=== PATIENT | female | born 1960 | race Two or more races ===

== ENCOUNTER 2017-10-19 13:52 | Outpatient (CLI) | payer OTHER | END 2017-10-19 14:42 | disposition home or self-care (01) | LOC: LAB 13:52 | DX: Z00.00 Encounter for general adult medical examination without abnormal findings (principal) ==

== ENCOUNTER → 2017-10-19 | Outpatient (CLI) | payer OTHER ==
[~2017-10-19] VITALS: Ht 152.4 cm; Wt 82.6 kg
[~2017-10-19] MED LIST: CATAFLAM50 MG PO; CITALOPRAM HBR10 MG; CLONAZEPAM0.5 MG/TAB; FLEXERIL10 MG PO; LAMICTAL5 MG; PREMARIN0.45 MG; PRILOSEC20 MG PO
== END | disposition home or self-care (01) ==
LOC: PPHC 11:30
DX: R42 Dizziness and giddiness (principal); R51 Headache; M54.89 Other dorsalgia

== ENCOUNTER → 2017-10-26 | Outpatient (CLI) | payer OTHER ==
[~2017-10-26] VITALS: Ht 152.4 cm; Wt 83.9 kg
== END | disposition home or self-care (01) ==
LOC: PPHC 09:58
DX: Z01.89 Encounter for other specified special examinations (principal)

== ENCOUNTER 2017-11-30 12:20 | Outpatient (CLI) | payer OTHER | END 2017-11-30 12:25 | disposition home or self-care (01) | LOC: MAMO-SONO 12:20 | DX: N60.11 Diffuse cystic mastopathy of right breast (principal); N60.12 Diffuse cystic mastopathy of left breast; Z12.31 Encounter for screening mammogram for malignant neoplasm of breast ==

== ENCOUNTER 2017-11-30 12:32 | Outpatient (CLI) | payer OTHER | END 2017-11-30 18:00 | disposition home or self-care (01) | LOC: MRI 12:32 | DX: M54.2 Cervicalgia (principal); R20.2 Paresthesia of skin | CPT/HCPCS: 72141 ==

== ENCOUNTER → 2017-11-30 | Outpatient (CLI) | payer OTHER | END | disposition home or self-care (01) | LOC: PPHC 10:51 | DX: M54.2 Cervicalgia (principal) ==

== ENCOUNTER → 2017-12-23 09:53 | Outpatient (CLI) | payer OTHER | END | disposition home or self-care (01) | LOC: LAB 09:53 | DX: N95.1 Menopausal and female climacteric states (principal) ==

== ENCOUNTER 2018-02-07 08:48 | Outpatient (CLI) | payer OTHER ==
[~2018-02-07] VITALS: Ht 152.4 cm; Wt 83.5 kg
== END 2018-02-07 09:10 | disposition home or self-care (01) ==
LOC: OFIC 805 08:48
DX: K21.9 Gastro-esophageal reflux disease without esophagitis (principal); R49.0 Dysphonia

== ENCOUNTER → 2018-04-08 | Outpatient (CLI) | payer OTHER | END | disposition home or self-care (01) | LOC: LAB 07:55 | DX: R10.13 Epigastric pain (principal) ==

== ENCOUNTER 2018-04-11 07:37 | Outpatient (CLI) | payer OTHER | END 2018-04-11 07:47 | disposition home or self-care (01) | LOC: TOM 07:37 | DX: R10.13 Epigastric pain (principal) ==

== ENCOUNTER 2018-09-15 15:41 | Outpatient (CLI) | payer OTHER ==
[~2018-09-15] VITALS: Ht 152.4 cm; Wt 73.0 kg
== END 2018-09-15 16:00 | disposition home or self-care (01) ==
LOC: OFIC 805 15:41
DX: K21.0 Gastro-esophageal reflux disease with esophagitis (principal); R49.0 Dysphonia; M54.2 Cervicalgia

== ENCOUNTER 2023-04-07 05:37 | Day surgery (SDC) | payer OTHER ==
[~2023-04-07] VITALS: Ht 165.1 cm; Wt 68.0 kg
[~2023-04-07 05:37] MED LIST changes: +STRESS B WITH1 EACH PO
[2023-04-07] MEDS ORDERED: PERCOCET 5-3251 EACH PO (08:50)
== END 2023-04-07 10:50 | disposition home or self-care (01) ==
LOC: CIR.AMB 05:37
PROVIDERS: ATTEND Surgery
DX: C73 Malignant neoplasm of thyroid gland (principal); E06.3 Autoimmune thyroiditis; E04.1 Nontoxic single thyroid nodule; Z20.822 Contact with and (suspected) exposure to COVID-19

== ENCOUNTER 2024-11-18 08:02 | Outpatient (CLI) | payer OTHER ==
[~2024-11-18 08:02] MED LIST changes: +PERCOCET 5-3251 EACH PO
[2024-11-18 10:34] LABS: HEMATOCRIT 41.1 % (36.0-45.00); MEAN CELL VOLUME 88.6 fL (80.00-100.00); MEAN CORPUSCULAR HEMOGLOBIN 30.1 pg (27.00-32.0); PLATELET COUNT 364 K/uL (150-450); RED BLOOD COUNT 4.64 M/uL (4.00-6.00); RED CELL DISTRIBUTION WIDTH 13.8 % (11.5-14.5)
[2024-11-18 10:37] LABS: URINE APPEARANCE Cloudy; URINE BILIRRUBIN Negative (NEGATIVE); URINE BLOOD Small; URINE COLOR Yellow; URINE GLUCOSE Negative (NEGATIVE); URINE KETONE Negative (NEGATIVE); URINE LEUKOCYTE Negative; URINE NITRATE Negative; URINE PROTEIN Negative (NEGATIVE); URINE UROBILINOGEN 0.2 E.U./dl
[2024-11-18 10:42] LABS: URINE BACTERIA 34.2 uL (0.0-1933); URINE EPITHELIAL CELLS 7.2 uL (0.0-38.8); URINE RBC 24.8 uL (0.0-20.8); URINE WBC 6.3 uL (0.0-23.2)
[2024-11-18 10:47] LABS: URINE CAST 0.73 uL (0.0-1.40)
[2024-11-18 11:41] LABS: ALBUMIN 3.8 gm/dL (3.4-5.0); BILIRUBIN TOTAL 1.08 mg/dL (0.3-1.2); CHOL HDL RATIO 3.5 (0-5.0); CREATININE SERUM 0.68 mg/dL (0.55-1.02); GFR 87.39; GLOBULINA 3.6 G/DL (2.4-3.5); POTASSIUM 4.28 mEq/L (3.5-5.1); T4 FREE 0.94 NG/ML (0.76-1.46); TOTAL PROTEIN 7.4 gm/dL (6.4-8.2)
[2024-11-18 11:42] LABS: TSH 5.18 uIU/mL (0.358-3.74)
== END 2024-11-18 08:03 | disposition home or self-care (01) ==
LOC: LAB 08:02
DX: E03.9 Hypothyroidism, unspecified (principal); E11.9 Type 2 diabetes mellitus without complications; E55.9 Vitamin D deficiency, unspecified; E78.00 Pure hypercholesterolemia, unspecified

== ENCOUNTER 2025-02-08 13:37 | Outpatient (CLI) | payer OTHER | END 2025-02-08 13:40 | disposition home or self-care (01) | LOC: MAMO-SONO 13:37 | PROVIDERS: ATTEND Internal Medicine Endocrinology, Diabetes & Metabolism | DX: I88.9 Nonspecific lymphadenitis, unspecified (principal); C73 Malignant neoplasm of thyroid gland; E04.1 Nontoxic single thyroid nodule; N64.1 Fat necrosis of breast; Z12.31 Encounter for screening mammogram for malignant neoplasm of breast ==

== ENCOUNTER 2025-02-22 11:45 | Outpatient (CLI) | payer OTHER | END 2025-02-22 11:46 | disposition home or self-care (01) | LOC: NUCLEAR 11:45 | PROVIDERS: ATTEND Internal Medicine Endocrinology, Diabetes & Metabolism | DX: M81.0 Age-related osteoporosis without current pathological fracture (principal) ==

== ENCOUNTER → 2025-03-12 07:43 | Outpatient (CLI) | payer OTHER ==
[2025-03-12 08:45] LABS: EOS # 0.13 (0.04-0.54); EOS % 3.1 % (0.7-7.0); HEMATOCRIT 39.7 % (34.1-44.9); HEMOGLOBIN 13.1 g/dL (11.2-15.7); LYMPH # 1.37 (1.18-3.74); LYMPH % 32.6 % (19.3-53.1); MONO # 0.29 (0.24-0.82); MONO % 6.9 % (4.7-12.5); NEUT # 2.37 (1.56-6.13); NEUT % 56.4 % (34.0-71.1); PLATELET COUNT 335 K/uL (163-369); RED BLOOD COUNT 4.51 M/uL (3.93-5.22); RED CELL DISTRIBUTION WIDTH 13.3 % (11.6-14.4)
[2025-03-12 08:51] LABS: PH,URINE 5.5 (5.0-8.0); URINE APPEARANCE Clear; URINE BILIRRUBIN Negative (NEGATIVE); URINE BLOOD Moderate; URINE COLOR Yellow; URINE GLUCOSE Negative (NEGATIVE); URINE KETONE Trace (NEGATIVE); URINE LEUKOCYTE Trace; URINE NITRATE Negative; URINE PROTEIN Negative (NEGATIVE)
[2025-03-12 08:56] LABS: URINE BACTERIA 56.2 uL (0.0-1933); URINE EPITHELIAL CELLS 5.5 uL (0.0-38.8); URINE RBC 29.7 uL (0.0-20.8); URINE WBC 1.8 uL (0.0-23.2)
[2025-03-12 09:01] LABS: URINE CAST 0.14 uL (0.0-1.40)
[2025-03-12 09:39] LABS: RH POSITIVE
[2025-03-12 09:43] LABS: ALBUMIN 3.8 gm/dL (3.4-5.0); BILIRUBIN TOTAL 1.3 mg/dL (0.3-1.2); CALCIUM 9.1 mg/dL (8.5-10.1); CHOL HDL RATIO 3.2 (0-5.0); CREATININE SERUM 0.73 mg/dL (0.55-1.02); FREE TRIODOTIRONINE 2.43 pg/ml (2.18-3.98); GFR 80.52; GLOBULINA 3.6 G/DL (2.4-3.5); POTASSIUM 4.23 mEq/L (3.5-5.1); T4 FREE 1.06 NG/ML (0.76-1.46); TOTAL PROTEIN 7.4 gm/dL (6.4-8.2); TSH 1.88 uIU/mL (0.358-3.74)
== END | disposition home or self-care (01) ==
LOC: LAB 07:43
PROVIDERS: ATTEND Internal Medicine Endocrinology, Diabetes & Metabolism
DX: E03.9 Hypothyroidism, unspecified (principal); D64.9 Anemia, unspecified; E53.8 Deficiency of other specified B group vitamins; E78.2 Mixed hyperlipidemia; I10 Essential (primary) hypertension; E55.9 Vitamin D deficiency, unspecified; N39.0 Urinary tract infection, site not specified

== ENCOUNTER 2025-03-12 08:49 | Outpatient (CLI) | payer OTHER | END 2025-03-12 08:54 | disposition home or self-care (01) | LOC: RAD 08:49 | DX: M54.2 Cervicalgia (principal); M25.551 Pain in right hip ==

== ENCOUNTER 2025-03-20 10:09 | Outpatient (CLI) | payer OTHER | END 2025-03-20 10:10 | disposition home or self-care (01) | LOC: NUCLEAR 10:09 | DX: I87.2 Venous insufficiency (chronic) (peripheral) (principal) ==

== ENCOUNTER 2025-03-21 10:48 | Outpatient (CLI) | payer OTHER | END 2025-03-21 10:49 | disposition home or self-care (01) | LOC: NUCLEAR 10:48 | DX: I73.9 Peripheral vascular disease, unspecified (principal) ==

== ENCOUNTER 2025-05-17 07:49 | Outpatient (CLI) | payer OTHER | END 2025-05-17 07:52 | disposition home or self-care (01) | LOC: SONOGRAMA 07:49 | DX: M25.551 Pain in right hip (principal); M70.71 Other bursitis of hip, right hip ==

== ENCOUNTER 2025-05-25 15:49 | Outpatient (CLI) | payer OTHER ==
[2025-05-25 16:14] LABS: BASO % 0.6 % (0.1-1.2); EOS # 0.34 (0.04-0.54); EOS % 7.2 % (0.7-7.0); LYMPH # 2.21 (1.18-3.74); LYMPH % 46.6 % (19.3-53.1); MEAN PLATELET VOLUME 9.90 fl (9.4-12.4); MONO # 0.37 (0.24-0.82); MONO % 7.8 % (4.7-12.5); NEUT # 1.78 (1.56-6.13); NEUT % 37.6 % (34.0-71.1); RED CELL DISTRIBUTION WIDTH 12.7 % (11.6-14.4)
[2025-05-25 16:45] LABS: MYCOPLASMA PNEUMONIAE IGM NON REACTIVE (NO REACTIVE)
[2025-05-25 17:02] LABS: COVID-19 AG POSITIVE (NEGATIVE)
== END 2025-05-25 15:52 | disposition home or self-care (01) ==
LOC: LAB 15:49
DX: J11.1 Influenza due to unidentified influenza virus with other respiratory manifestations (principal); Z20.822 Contact with and (suspected) exposure to COVID-19

== ENCOUNTER 2025-07-23 08:12 | Emergency (ER) | payer OTHER ==
[~2025-07-23] VITALS: Ht 165.1 cm; Wt 71.2 kg
[2025-07-23] MEDS ORDERED: SYNTHROID88 MCG PO (08:17)
[2025-07-23] MEDS ORDERED: SYNTHROID75 MCG PO (08:18)
[2025-07-23] MEDS ORDERED: FAMOtidine 10 MG/ML (4ML VIAL) IV PUSH ONE (09:00)
[2025-07-23] MEDS ORDERED: ONDANSETRON HCL 4 MG in 0.9 % SODIUM CHLORIDE 50 ML IV ONE (09:00)
[2025-07-23] MEDS ORDERED: ACETAMINOPHEN 500 MG GEL..CAP PO ONE (09:00)
[2025-07-23] MEDS ORDERED: 0.9 % SODIUM CHLORIDE 1,000 ML IV SCH (09:00)
[2025-07-23 09:38] LABS: URINE APPEARANCE Clear; URINE BACTERIA 8.3 uL (0.0-1933); URINE BILIRRUBIN Negative (NEGATIVE); URINE BLOOD Small; URINE CAST 2.93 uL (0.0-1.40); URINE COLOR Yellow; URINE EPITHELIAL CELLS 5.3 uL (0.0-38.8); URINE GLUCOSE Negative (NEGATIVE); URINE KETONE Negative (NEGATIVE); URINE LEUKOCYTE Trace; URINE NITRATE Negative; URINE PROTEIN Negative (NEGATIVE); URINE RBC 10.8 uL (0.0-20.8); URINE UROBILINOGEN 0.2 E.U./dl; URINE WBC 5.0 uL (0.0-23.2)
[2025-07-23 09:54] LABS: BASO % 0.4 % (0.1-1.2); EOS # 0.11 (0.04-0.54); EOS % 2.1 % (0.7-7.0); LYMPH # 1.81 (1.18-3.74); LYMPH % 35.1 % (19.3-53.1); MEAN PLATELET VOLUME 9.20 fl (9.4-12.4); MONO # 0.38 (0.24-0.82); MONO % 7.4 % (4.7-12.5); NEUT # 2.83 (1.56-6.13); NEUT % 54.8 % (34.0-71.1); RED CELL DISTRIBUTION WIDTH 13.4 % (11.6-14.4)
[2025-07-23 10:00] LABS: URINE CRYSTALS FEW /HPF
[2025-07-23 10:00] LABS: ERYTHROCYTE SEDIMENTATION RATE 10 mm/hr (0-30)
[2025-07-23 10:32] LABS: INR 1.02
[2025-07-23 10:34] LABS: ALT/SGPT 102.0 U/L (12-78); AST/SGOT 56.0 U/L (15-37); BILIRUBIN TOTAL 1.73 mg/dL (0.3-1.2); BUN CREA RATIO 16.0 (7.0-25.0); CREATININE SERUM 0.75 mg/dL (0.55-1.02); GFR 77.8; GLOBULINA 4.4 G/DL (2.4-3.5); GLUCOSE FASTING 89.0 mg/dL (65-100); OSMOLALITY SERUM 277.0 MOSM/KG (275-295)
[2025-07-23] MEDS ORDERED: DICY20TA PO (13:25)
[2025-07-23] MEDS ORDERED: METRONIDAZOLE500 MG PO (13:25)
[2025-07-23] MEDS ORDERED: CIPRO500 MG PO (13:25)
[2025-07-23] MEDS ORDERED: INTESTINEX680 M1 PO (13:25)
== END 2025-07-23 14:28 | disposition home or self-care (01) ==
LOC: ER 08:13
PROVIDERS: General Practice
DX: K52.89 Other specified noninfective gastroenteritis and colitis (principal); Z85.850 Personal history of malignant neoplasm of thyroid; Z91.013 Allergy to seafood